=== PATIENT | male | born 1950 | race Caucasian/White ===

== ENCOUNTER 2021-11-23 11:52 | Inpatient (IN) | payer OTHER ==
[2021-11-23 13:03] LABS: Absolute Lymphocytes (CBC) 0.5 K/uL (0.7-4.9); Hematocrit 43.5 % (39.6-49.0); Lymphocytes % 5.2 % (15.3-44.8); MPV 8.2 fL (7.6-11.3); RBC Red Blood Cell Count 5.07 M/uL (4.33-5.43)
[2021-11-23 13:09] LABS: Protime INR 1.28
[2021-11-23] MEDS ORDERED: PANTOPRAZOLE 40 MG INJ ONE (13:10)
[2021-11-23] MEDS ORDERED: ONDANSETRON 4 MG/2 ML VIAL ONE (13:10)
[2021-11-23] MEDS ORDERED: NA CHLORIDE 0.9% 1,000 ML ONE (13:11)
[2021-11-23 13:24] LABS: Albumin 2.2 g/dL (3.4-5.0); Bilirubin Direct 0.9 mg/dL (0-0.2); Bilirubin Total 1.6 mg/dL (0.2-1.0); Magnesium 2.1 mg/dL (1.8-2.4); Potassium 4.1 mmol/L (3.5-5.1); Protein, Total 7.4 g/dL (6.4-8.2); Troponin High Sensitivity 4.8 pg/mL (<58.9)
[2021-11-23 13:26] LABS: Urine Blood Negative (Negative); Urine Glucose Negative (Negative); Urine Protein 2+ (Negative); Urine Specific Gravity >=1.030 (1.005-1.030)
--- NOTE | 2021-11-23 13:53 | RAD REPORT ---
EXAM DESCRIPTION: CT - Head Brain Wo Cont - 11/23/2021 1:42 pm CLINICAL HISTORY: Hand weakness COMPARISON: None TECHNIQUE: Computed axial tomography of the head was obtained. IV contrast was not requested. All CT scans are performed using dose optimization technique as appropriate and may include automated exposure control or mA/KV adjustment according to patient size. FINDINGS: An intracranial bleed is not seen . The ventricles are normal in caliber. No extra-axial fluid collection is noted. No significant hypodense areas within the brain Fluid within the sinuses/ mastoids is not seen. IMPRESSION: No acute intracranial abnormality is seen. If patient's symptoms persist MRI of the bra in would be recommended.
[2021-11-23] MEDS: PANTOPRAZOLE INJ 80 MG in NA CHLORIDE 0.9% 250 ML IV SCH (14:00)
--- NOTE | 2021-11-23 14:01 | RAD REPORT ---
EXAM DESCRIPTION: CT - Abdomen Pelvis W Contrast - 11/23/2021 1:42 pm CLINICAL HISTORY: Abdominal pain COMPARISON: none. TECHNIQUE: Computed axial tomography of the abdomen pelvis was obtained. 100 cc Isovue-300 was admin istered intravenously. Oral contrast was not requested which limits evaluation of bowel. All CT scans are performed using dose optimization technique as appropriate and may include automated exposure control or mA/KV adjustment according to patient size. FINDINGS: The liver, spleen, pancreas, adrenal and kidneys appear unremarkable. Cholecystectomy. The wall of sigmoid colon is moderately thickened. There is mild thickening of the wall of descending colon. Mild stranding adjacent to the left colon. No evidence of diverticulitis Ankylosing spondylitis is present. Scoliosis IMPRESSION: Moderate thickening of the wall of the sigmoid colon. Mild thickening of the wall of the descending colon. Patient probably has a moderate colitis.
--- NOTE | 2021-11-23 14:03 | RAD REPORT ---
EXAM DESCRIPTION: Luis Alfredo Single View11/23/2021 1:16 pm CLINICAL HISTORY: Abdominal pain COMPARISON: none FINDINGS: The lungs appear clear of acute infiltrate. The heart is normal size IMPRESSION: No acute abnormalities displayed
[2021-11-23 14:44] LABS: Urine Bacteria 20-50 /HPF (NONE SEEN); Urine Mucus 1+ /HPF (NONE SEEN); Urine RBC <5 /HPF (NONE SEEN)
--- NOTE | 2021-11-23 15:02 | ER ---
Nurse's Notes [facility] Name: Mateusz Carlson Jr Age: 71 yrs Sex: Male : 1950 Arrival Date: 11/23/2021 Time: 11:55 Bed 24 Private MD: Diagnosis: Left sided colitis with rectal bleeding Presentation: 11/23 12:02 Chief complaint: Patient states: Bloody diarrhea for 5 day. Epigastric pain also, no ll1 fever. Coronavirus screen: Vaccine status: Patient reports receiving the 2nd dose of the covid vaccine. Client denies travel out of the [place] in the last 14 days. At this time, the client does not indicate any symptoms associated with coronavirus-19. Ebola Screen: Patient denies travel to an Ebola-affected area in the 21 days before illness onset. Initial Sepsis Screen: Does the patient meet any 2 criteria? No. Patient's initial sepsis screen is negative. Does the patient have a suspected source of infection? Yes: Acute abdominal pain. Risk Assessment: Do you want to hurt yourself or someone else? Patient reports no desire to harm self or others. Onset of symptoms was November 18, 2021. 12:02 Method Of Arrival: Wheelchair ll1 12:02 Acuity: STEPHANIE 3 ll1 Triage Assessment: 12:03 General: Appears ill, Behavior is cooperative, appropriate for age. Pain: Complains of ll1 pain in epigastric Quality of pain is described as aching. GI: Reports upper abdominal pain, rectal bleeding, bloody stool, nausea. Historical: - Allergies: 12:01 No Known Allergies; ll1 - PMHx: 12:01 None; ll1 - PSHx: 12:01 Cholecystectomy; ll1 - Immunization history:: Client reports having NOT received the Covid vaccine. - Social history:: Smoking status: Patient denies any tobacco usage or history of. Screenin:19 Abuse screen: Denies threats or abuse. Denies injuries from another. Nutritional ph screening: No deficits noted. Tuberculosis screening: No symptoms or risk factors identified. Fall Risk None identified. Assessment: 13:38 General: Appears in no apparent distress. Behavior is calm, cooperative, appropriate ph for age, Denies fever. Pain: Complains of pain in epigastric area. Neuro: Level of Consciousness is awake, alert, obeys commands, Oriented to person, place, time, situation. Cardiovascular: Denies chest pain, shortness of breath, Capillary refill < 3 seconds in bilateral fingers Patient's skin is warm and dry. Respiratory: Airway is patent Respiratory effort is even, unlabored. GI: Reports upper abdominal pain, diarrhea, bloody stool, epigastric pain, nausea. : No signs and/or symptoms were reported regarding the genitourinary system. Urine is dark in color. Derm: Skin is intact. Musculoskeletal: Circulation, motion, and sensation intact. Range of motion: intact in all extremities, Reports numbness in right hand and left hand pain in right hand and left hand. 14:30 Reassessment: Patient appears in no apparent distress at this time. Patient and/or ph family updated on plan of care and expected duration. Pain level reassessed. Patient is alert, oriented x 3, equal unlabored respirations, skin warm/dry/pink. 15:36 Reassessment: Patient appears in no apparent distress at this time. Patient and/or ph family updated on plan of care and expected duration. Pain level reassessed. Patient is alert, oriented x 3, equal unlabored respirations, skin warm/dry/pink. 16:58 Reassessment: Patient appears in no apparent distress at this time. Patient and/or jb4 family updated on plan of care and expected duration. Pain level reassessed. Patient is alert, oriented x 3, equal unlabored respirations, skin warm/dry/pink. 19:04 Reassessment: Patient appears in no apparent distress at this time. Patient and/or jb4 family updated on plan of care and expected duration. Pain level reassessed. Patient is alert, oriented x 3, equal unlabored respirations, skin warm/dry/pink. 19:15 Reassessment: Patient appears in no apparent distress at this time. No changes from wh previously documented assessment. Patient is alert, oriented x 3, equal unlabored respirations, skin warm/dry/pink. Vital Signs: 12:02 BP 108 / 77; Pulse 107; Resp 18; Temp 97.7; Pulse Ox 97% ; Weight 102.97 kg; Height 5 ll1 ft. 10 in. (177.80 cm); Pain 5/10; 13:38 BP 111 / 76; Pulse 104; Resp 18; Pulse Ox 98% on R/A; ph 14:30 BP 112 / 76; Pulse 101; Resp 18; Pulse Ox 99% on R/A; ph 15:37 BP 108 / 71; Pulse 99; Resp 16; Pulse Ox 99% on R/A; ph 16:58 BP 108 / 74; Pulse 94; Resp 16; Pulse Ox 98% on R/A; jb4 18:00 BP 111 / 74; Pulse 94; Resp 20; Pulse Ox 98% on R/A; jb4 19:30 BP 111 / 75; Pulse 89; Resp 18; Pulse Ox 100% on R/A; wh 12:02 Body Mass Index 32.57 (102.97 kg, 177.80 cm) ll1 Vitals: 14:30 Cardiac Rhythm Assessment Sinus rhythm. ph ED Course: 11:55 Patient arrived in ED. ds1 11:58 Arm band placed on. ll1 12:03 Triage completed. ll1 12:13 Corazon Stevens, DARRELL is Primary Nurse. ph 12:15 Jaime Soria PA is PHCP. cp 12:15 Jaime Mejia MD is Attending Physician. cp 12:19 Patient has correct armband on for positive identification. Bed in low position. Call ph light in reach. Side rails up X 1. traffic monitor specialist on. Pulse ox on. NIBP on. Door closed. Noise minimized. 12:52 Initial lab(s) drawn, by me, sent to lab. T\T\S collected, blood band applied to patient. ph Inserted saline lock: 20 gauge in right antecubital area, using aseptic technique. Blood collected. 13:18 XRAY Chest (1 view) In Process Unspecified. EDMS 13:43 CT Head Brain wo Cont In Process Unspecified. EDMS 13:43 CT Abd/Pelvis - IV Contrast Only In Process Unspecified. EDMS 15:01 Moe Buck MD is Hospitalizing Provider. cp 16:30 Inserted saline lock: 20 gauge in left antecubital area, using aseptic technique. jb4 Missed attempt(s): 18 gauge in left forearm. 19:51 No provider procedures requiring assistance completed. Patient admitted, IV remains in place. Administered Medications: 13:15 Drug: NS 0.9% 500 ml Route: IV; Rate: bolus; Site: right antecubital; ph 19:52 Follow up: Response: No adverse reaction; IV Status: Completed infusion 13:20 Drug: Zofran (Ondansetron) 4 mg Route: IVP; Site: right antecubital; ph 19:52 Follow up: Response: No adverse reaction 13:20 Drug: ProTONIX (pantoprazole) 40 mg Route: IVP; Site: right antecubital; ph 19:53 Follow up: Response: No adverse reaction 15:35 Drug: NS 0.9% 500 ml Route: IV; Rate: 100 ml/hr; Site: right antecubital; ph 19:52 Follow up: Response: No adverse reaction; IV Status: Completed infusion 15:35 Drug: ProTONIX (pantoprazole) 8 mg/hr Route: IV; Rate: 25 ml/hr; Site: right ph antecubital; 19:53 Follow up: Response: No adverse reaction; IV Status: Infusion continued upon admission 16:38 Drug: Cipro (ciprofloxacin) 400 mg Volume: 200 ml; Route: IVPB; Infused Over: 60 mins; jb4 Site: left antecubital; 19:52 Follow up: Response: No adverse reaction; IV Status: Completed infusion 16:38 Drug: metroNIDAZOLE 500 mg Volume: 100 ml; Route: IVPB; Infused Over: 30 mins; Site: jb4 left antecubital; 19:52 Follow up: Response: No adverse reaction; IV Status: Completed infusion Outcome: 15:02 Decision to Hospitalize by Provider. cp 19:51 Admitted to Med/surg accompanied by nurse, family with patient, via wheelchair, room wh 222, with chart, Report called to Brooke Baumann RN 19:51 Condition: stable 19:51 Instructed on the need for admit. 20:14 Patient left the ED. Signatures: Dispatcher [employer] EDOR Fiorella Beckett ds1 Corazon Stevens RN RN Jaime Quintero PA PA cp Tom Andrade RN RN jb4 Дмитрий Huertas RN RN Gaye Charlton RN RN ll1
--- NOTE | 2021-11-23 15:02 | EDPHYS ---
Physician Documentation [facility] Name: Mateusz Carlson Jr Age: 71 yrs Sex: Male : 1950 Arrival Date: 11/23/2021 Time: 11:55 Bed 24 Private MD: ED Physician Jaime Mejia HPI: 11/23 12:30 This 71 yrs old Male presents to ER via Wheelchair with complaints of Bloody Stools - cp Diarrhea, Numbness Of Hand - Swelling. 12:30 The patient presents to the emergency department with rectal bleeding, dark red blood cp with bowel movement with multiple such episodes. Onset: The symptoms/episode began/occurred 4 day(s) ago. 12:30 Abdominal pain: located in the epigastric area. Associated signs and symptoms: cp Pertinent positives: anorexia, diarrhea, Pertinent negatives: chest pain, constipation, fever, shortness of breath, syncope, vomiting. Severity of symptoms: in the emergency department the symptoms are unchanged despite home interventions. Historical: - Allergies: 12:01 No Known Allergies; ll1 - PMHx: 12:01 None; ll1 - PSHx: 12:01 Cholecystectomy; ll1 - Immunization history:: Client reports having NOT received the Covid vaccine. - Social history:: Smoking status: Patient denies any tobacco usage or history of. ROS: 12:35 Constitutional: Positive for poor PO intake, Negative for body aches, chills, fever. cp 12:35 Eyes: Negative for injury, pain, redness, and discharge. cp 12:35 ENT: Negative for drainage from ear(s), ear pain, sore throat, difficulty swallowing, difficulty handling secretions. 12:35 Cardiovascular: Negative for chest pain, edema, palpitations. 12:35 Respiratory: Negative for cough, shortness of breath, wheezing. 12:35 Abdomen/GI: Positive for abdominal pain, nausea, diarrhea, anorexia, rectal bleeding, Negative for vomiting. 12:35 Back: Negative for pain at rest, pain with movement. 12:35 MS/extremity: Positive for pain, swelling, of the right hand and left hand, Negative for injury or acute deformity, decreased range of motion. 12:35 Neuro: Positive for numbness, general weakness, Negative for altered mental status, headache. 12:35 All other systems are negative. Exam: 12:40 Constitutional: The patient appears in no acute distress, alert, awake, cp non-diaphoretic, non-toxic, well developed, well nourished. 12:40 Head/Face: Normocephalic, atraumatic. cp 12:40 Eyes: Periorbital structures: appear normal, Conjunctiva: normal, no exudate, no injection, Sclera: no appreciated abnormality, Lids and lashes: appear normal, bilaterally. 12:40 ENT: External ear(s): are unremarkable, Nose: is normal, Mouth: Lips: moist, Oral mucosa: pink and intact, moist, Posterior pharynx: Airway: no evidence of obstruction, patent. 12:40 Neck: ROM/movement: is normal, is supple, without pain, no range of motions limitations. 12:40 Chest/axilla: Inspection: normal, Palpation: is normal, no crepitus, no tenderness. 12:40 Cardiovascular: Rate: tachycardic, Rhythm: regular, Edema: is not appreciated, JVD: is not appreciated. 12:40 Respiratory: the patient does not display signs of respiratory distress, Respirations: normal, no use of accessory muscles, no retractions, labored breathing, is not present, Breath sounds: are clear throughout, no decreased breath sounds, no stridor, no wheezing. 12:40 Abdomen/GI: Inspection: abdomen appears normal, Bowel sounds: active, all quadrants, Palpation: soft, in all quadrants, mild abdominal tenderness, in all quadrants, rebound tenderness, is not appreciated, involuntary guarding, is not appreciated. 12:40 Back: pain, is absent, ROM is normal. 12:40 Skin: cellulitis, is not appreciated, no rash present. 12:40 Neuro: Orientation: to person, place \\T\\ time. Mentation: is normal, Motor: moves all fours, weakend workday director strength bilaterally, Sensation: no obvious gross deficits. 13:05 : Rectal exam: Rectal tone: normal, Stool: dark brown, Guaiac testing: results were cp positive for occult blood. 14:55 ECG was reviewed by the Attending Physician. cp Vital Signs: 12:02 BP 108 / 77; Pulse 107; Resp 18; Temp 97.7; Pulse Ox 97% ; Weight 102.97 kg; Height 5 ll1 ft. 10 in. (177.80 cm); Pain 5/10; 13:38 BP 111 / 76; Pulse 104; Resp 18; Pulse Ox 98% on R/A; ph 14:30 BP 112 / 76; Pulse 101; Resp 18; Pulse Ox 99% on R/A; ph 15:37 BP 108 / 71; Pulse 99; Resp 16; Pulse Ox 99% on R/A; ph 16:58 BP 108 / 74; Pulse 94; Resp 16; Pulse Ox 98% on R/A; jb4 18:00 BP 111 / 74; Pulse 94; Resp 20; Pulse Ox 98% on R/A; jb4 19:30 BP 111 / 75; Pulse 89; Resp 18; Pulse Ox 100% on R/A; wh 12:02 Body Mass Index 32.57 (102.97 kg, 177.80 cm) ll1 MDM: 12:[address] [facility] 14:30 Data reviewed: vital signs, nurses notes, lab test result(s), EKG, radiologic studies, cp CT scan, plain films. 14:30 Differential diagnosis: gastritis, diverticulitis, hemorrhoids, hemorrhagic shock. Test cp interpretation: by ED physician or midlevel provider: ECG, plain radiologic studies. Physician consultation: Moe Buck MD was called at 14:30, was contacted at 14:30, regarding admission, to the telemetry unit. patient's condition. 11/23 12:24 Order name: Basic Metabolic Panel; Complete Time: 13:50 cp 11/23 13:50 Interpretation: Normal except: NA 131; GLUC 109; GFR 69. cp 11/23 12:24 Order name: CBC with Diff; Complete Time: 13:20 cp 11/23 13:20 Interpretation: Normal except: VANE% 85.0; LYM% 5.2; NEUT A 8.4; LYMA 0.5. cp 11/23 12:24 Order name: LFT's; Complete Time: 13:50 cp 11/23 13:51 Interpretation: Normal except: BILIT 1.6; BILID 0.9; ALB 2.2; GLOB 5.2; A/G 0.4. cp 11/23 12:24 Order name: Magnesium; Complete Time: 13:50 cp 11/23 12:24 Order name: PT-INR; Complete Time: 13:20 cp 11/23 13:51 Interpretation: PT 14.1; Reviewed. cp 11/23 12:24 Order name: Troponin HS; Complete Time: 13:50 cp 11/23 12:24 Order name: Type And Screen; Complete Time: 13:50 cp 11/23 12:24 Order name: Ptt, Activated; Complete Time: 13:20 cp 11/23 12:59 Order name: Stool Culture cp 11/23 12:59 Order name: Occult Blood; Complete Time: 16:18 cp 11/23 12:59 Order name: Ova And Parasites cp 11/23 12:59 Order name: Rotavirus Antigen; Complete Time: 16:18 cp 11/23 13:22 Order name: Urine Microscopic Only; Complete Time: 16:18 cp 11/23 13:26 Order name: Urine Dipstick-Ancillary; Complete Time: 13:50 EDAL 11/23 13:51 Interpretation: Normal except: UPROT 2+; U NIT Positive. cp 11/23 12:24 Order name: XRAY Chest (1 view); Complete Time: 14:09 cp 11/23 14:09 Interpretation: Report review. 11/23 13:20 Order name: CT Head Brain wo Cont; Complete Time: 14:09 cp 11/23 14:09 Interpretation: Report reviewed. cp 11/23 13:20 Order name: CT Abd/Pelvis - IV Contrast Only; Complete Time: 14:09 cp 11/23 14:47 Order name: Urine Culture EDAL 11/23 15:36 Order name: COVID-19 SARS RT PCR (Document "Date of Onset" if Symptomatic); Complete ph Time: 16:18 11/23 16:47 Order name: CBC with Automated Diff EDMS 11/23 16:47 Order name: CBC with Automated Diff; Complete Time: 16:18 EDMS 11/23 16:47 Order name: Comprehensive Metabolic Panel EDMS 11/23 16:47 Order name: Comprehensive Metabolic Panel; Complete Time: 16:18 EDMS 11/23 16:47 Order name: Magnesium EDMS 11/23 16:47 Order name: Magnesium; Complete Time: 16:18 EDMS 11/23 12:24 Order name: Orthostatics; Complete Time: 15:18 cp 11/23 12:24 Order name: EKG; Complete Time: 12:26 cp 11/23 12:24 Order name: Cardiac monitoring; Complete Time: 14:38 cp 11/23 12:24 Order name: EKG - Nurse/Tech; Complete Time: 14:38 cp 11/23 12:24 Order name: IV Saline Lock; Complete Time: 13:37 cp 11/23 12:24 Order name: Labs collected and sent; Complete Time: 13:37 cp 11/23 12:24 Order name: O2 Per Protocol; Complete Time: 13:36 cp 11/23 12:24 Order name: O2 Sat Monitoring; Complete Time: 13:36 cp 11/23 13:22 Order name: Urine Dipstick-Ancillary (obtain specimen); Complete Time: 13:38 cp 11/23 16:45 Order name: CONS Physician Consult EDMS 11/23 16:47 Order name: NPO EDMS EC:55 Rate is 93 beats/min. Rhythm is regular. GA interval is normal. QRS interval is normal. cp QT interval is normal. T waves are Inverted in lead aVR. Interpreted by me. Reviewed by me. Administered Medications: 13:15 Drug: NS 0.9% 500 ml Route: IV; Rate: bolus; Site: right antecubital; ph 19:52 Follow up: Response: No adverse reaction; IV Status: Completed infusion 13:20 Drug: Zofran (Ondansetron) 4 mg Route: IVP; Site: right antecubital; ph 19:52 Follow up: Response: No adverse reaction 13:20 Drug: ProTONIX (pantoprazole) 40 mg Route: IVP; Site: right antecubital; ph 19:53 Follow up: Response: No adverse reaction 15:35 Drug: NS 0.9% 500 ml Route: IV; Rate: 100 ml/hr; Site: right antecubital; ph 19:52 Follow up: Response: No adverse reaction; IV Status: Completed infusion 15:35 Drug: ProTONIX (pantoprazole) 8 mg/hr Route: IV; Rate: 25 ml/hr; Site: right ph antecubital; 19:53 Follow up: Response: No adverse reaction; IV Status: Infusion continued upon admission 16:38 Drug: Cipro (ciprofloxacin) 400 mg Volume: 200 ml; Route: IVPB; Infused Over: 60 mins; jb4 Site: left antecubital; 19:52 Follow up: Response: No adverse reaction; IV Status: Completed infusion 16:38 Drug: metroNIDAZOLE 500 mg Volume: 100 ml; Route: IVPB; Infused Over: 30 mins; Site: jb4 left antecubital; 19:52 Follow up: Response: No adverse reaction; IV Status: Completed infusion Disposition Summary: 11/23/21 15:02 Hospitalization Ordered Hospitalization Status: Observation cp Provider: Moe Buck cp Location: Telemetry/MedSurg (observation) cp Condition: Stable cp Problem: new cp Symptoms: have improved cp Bed/Room Type: Standard cp Room Assignment: 222(11/23/21 19:34) cg Diagnosis - Left sided colitis with rectal bleeding cp Forms: - Medication Reconciliation Form cp - SBAR form cp Addendum: 12/01/2021 07:41 Co-signature as Attending Physician, Jaime Mejia MD I agree with the assessment and c pina plan of care. Signatures: Dispatcher [employer] EDJaime Rhodes MD MD cha Hall, Patricia, RN RN Jaime Soria PA PA cp Pilar Santiago RN RN Tom Andrade RN RN jb4 Gaye Charlton RN RN ll1 Дмитрий Huertas RN Corrections: (The following items were deleted from the chart) 11/23 19:12 15:02 cp cg 19:34 19:12 231 cg cg
[2021-11-23] MEDS ORDERED: CIPROFLOXACIN 400mg IV 400 MG/200 ML BAG IV ONE (15:03)
[2021-11-23] MEDS ORDERED: METRONIDAZOLE 500mg IVPB 500 MG/100 ML BAG IV ONE (15:03)
[2021-11-23] MEDS ORDERED: ONDANSETRON 4 MG/2 ML VIAL IV PRN (16:43)
--- NOTE | 2021-11-23 16:47 | P.HP ---
Patient History Date of Service: 11/23/21 Reason for admission: GI bleed, inability to maintain adequate hydration History of Present Illness: 71-year-old male, PMH: Shoulder/neck pain. 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 Patient was treated with meloxicam and prednisone for 1 week due to bilateral hand pain, weakness, numbness after manipulations by a chiropractor. Patient was previously taking ibuprofen 600 mg twice a day for approximately 4-5 days. Patient states upon completing the above regimen, he began to have diarrhea and noted maroonish discoloration. Reports initially having diarrhea episodes every 2 hours, associated with abdominal discomfort while/after having a bowel movement. Patient took Imodium with some slight improvement of frequency of diarrhea. Denies any prior history of GI bleed. Last colonoscopy 3-4 years ago unremarkable, only had a polypectomy. Also reports significant heartburn over the last several days, points to epigastric region has been having pain, taking Tums with not much relief. He has been unable to stay hydrated and keep up with the diarrhea, decreased appetite. In the ED, he was noted to be slightly tachycardic to 110, low blood pressure [id number] systolic, afebrile. CT abdomen/pelvis concerning for moderate colitis. ED provider requests admission for further management/evaluation. Started on antibiotics and Protonix drip. Review of Systems 10-point ROS is otherwise unremarkable Physical Examination - Physical Exam General: Alert, In no apparent distress, Oriented x3 HEENT: EOMI, Sclerae nonicteric Neck: Supple, No LAD Respiratory: Clear to auscultation bilaterally, Normal air movement Cardiovascular: No edema, Regular rate/rhythm, No murmurs Gastrointestinal: Soft and benign, Non-distended, No rebound, No guarding, Tenderness (Mild epigastric tenderness. Mild lower abdominal tenderness) Musculoskeletal: No erythema, No tenderness Integumentary: No rashes, No significant lesion Neurological: Normal speech, Normal strength at 5/5 x4 extr, Normal affect - Studies Laboratory Data (last 24 hrs) 11/23/21 12:45: PT 14.1 H, INR 1.28, APTT 35.1 11/23/21 12:45: WBC 9.9, Hgb 14.6, Hct 43.5, Plt Count 372 11/23/21 12:45: Sodium 131 L, Potassium 4.1, BUN 15, Creatinine 1.06, Glucose 109 H, Magnesium 2.1, Total Bilirubin 1.6 H, AST 35, ALT 25, Alkaline Phosphatase 80 Microbiology Data (last 24 hrs): 11/23/21 13:20 Stool Occult Blood - Final Assessment and Plan - Advance Directives Does patient have a Living Will: No Does patient have a Durable POA for Healthcare: No Physician Review Additional Text: Problem list Sigmoid colitis with GI bleed Epigastric tenderness Persistent dark maroonish diarrhea, inability to maintain adequate hydration at home Low blood pressure and tachycardia secondary to dehydration CT: moderate colitis Maroonish stool noted, guaiac positive Hemoglobin 14, suspect this is hemoconcentrated, expect slight drop by tomorrow. Repeat CBC tomorrow IV fluids, n.p.o., Protonix drip Epigastric pain significantly improved after initiation of Protonix drip Mild lower abdominal tenderness, improved with pain medication Will discuss with GI, if requires inpatient scope Tachycardia and low blood pressure secondary to dehydration, afebrile, without leukocytosis Patient does not appear septic at this time. VTE: SCDs Code: DNR Dispo: Home, 1-2 days, possible scope Time Spent Managing Pts Care (In Minutes): 75
[2021-11-23] MEDS: NA CHLORIDE 0.9% 1,000 ML IV SCH ×3 (17:00→22:13)
[2021-11-23] MEDS: METRONIDAZOLE 500mg IVPB 500 MG/100 ML BAG IV SCH (17:00)
[2021-11-23] MEDS: CIPROFLOXACIN 400mg IV 400 MG/200 ML BAG IV SCH (21:00)
[2021-11-23 21:08] VITALS: BMI 32.5
[2021-11-24] MEDS ORDERED: PANTOPRAZOLE 40 MG INJ ONE ×2 (00:13→22:51)
[2021-11-24] MEDS: PANTOPRAZOLE INJ 80 MG in NA CHLORIDE 0.9% 250 ML IV SCH ×2 (01:20→09:17)
[2021-11-24] MEDS: METRONIDAZOLE 500mg IVPB 500 MG/100 ML BAG IV SCH ×3 (01:22→16:59)
[2021-11-24 04:08] LABS: Absolute Lymphocytes (CBC) 0.6 K/uL (0.7-4.9); Hematocrit 37.5 % (39.6-49.0); Lymphocytes % 8.9 % (15.3-44.8); RBC Red Blood Cell Count 4.35 M/uL (4.33-5.43)
[2021-11-24 04:35] LABS: ALT/SGPT 18 U/L (12-78); AST/SGOT 23 U/L (15-37); Albumin 1.8 g/dL (3.4-5.0); Alkaline Phosphatase 62 U/L (45-117); BUN Blood Urea Nitrogen 14 mg/dL (7-18); Bicarbonate 24 mmol/L (21-32); Bilirubin Total 0.9 mg/dL (0.2-1.0); Glucose Level 95 mg/dL (74-106); Magnesium 2.1 mg/dL (1.8-2.4); Potassium 3.8 mmol/L (3.5-5.1); Protein, Total 6.1 g/dL (6.4-8.2); Sodium Level 133 mmol/L (136-145)
[2021-11-24] MEDS: NA CHLORIDE 0.9% 1,000 ML IV SCH ×2 (06:45→18:30)
--- NOTE | 2021-11-24 06:55 | P.PN ---
Date of Service: 11/24/21 Subjective: one small BM, brownish no nausea/vomiting no abdominal pain no SOB, no chest pain feeling better ROS: 10 point ROS as noted above, otherwise negative Physical exam GEN: Alert, oriented, NAD HEENT: Normal conjunctiva, sclera anicteric CV: Regular rate and rhythm, no edema Pulm: Nonlabored respirations on room air ABD: Soft, nontender, nondistended Neuro: Normal speech, normal affect Problem list Sigmoid colitis with GI bleed Epigastric tenderness Persistent dark maroonish diarrhea, inability to maintain adequate hydration at home intermittent difficulty swallowing Low blood pressure and tachycardia secondary to dehydration CT: moderate colitis Maroonish stool noted, guaiac positive Hemoglobin 14 -> 12, 2/2 blood loss, dilution IV fluids, n.p.o., Protonix drip Epigastric pain significantly improved after initiation of Protonix drip Mild lower abdominal tenderness improved as well patient may also have esoph stenosis /Schatzki's ring given history of intermittent food getting stuck GI consulted - plan for EGD today Tachycardia and low blood pressure secondary to dehydration, afebrile, without leukocytosis Patient does not appear septic at this time. VTE: SCDs Code: DNR Dispo: Home, 1-2 days Time Spent Managing Pts Care (In Minutes): 35
[2021-11-24] MEDS ORDERED: KCL 20 MEQ/100 mL IVPB 20 MEQ/100 ML BAG IV ONE (08:00)
[2021-11-24] MEDS: CIPROFLOXACIN 400mg IV 400 MG/200 ML BAG IV SCH ×2 (08:55→23:56)
[2021-11-24] MEDS ORDERED: Ringers Lactate 1,000 ML IV ONE (12:56)
[2021-11-24] MEDS ORDERED: EPINEPHRINE/PF 1 MG/ML AMP ONE (13:35)
[2021-11-24] MEDS ORDERED: propofoL 200 MG/20 ML VIAL IV ONE (13:55)
[2021-11-24] MEDS ORDERED: LIDOCAINE 1% MPF 30 ML VIAL ONE (13:55)
--- NOTE | 2021-11-24 14:37 | ENDO RPT ---
[address], [address] EGD WITH DILATION PROCEDURE REPORT EXAM DATE: 11/24/2021 PATIENT NAME: Mateusz Carlson MR#: [id number] BIRTHDATE: 1950 ATTENDING: Mateusz Suggs Dr STATUS: inpatient - [facility] [employer] FEEDER: Corazon Sue and Cecille Chaney RN INDICATIONS: The patient is a 71 yr old Male here for an EGD with dilation due to mid epigastric abdominal pain, melenic bleeding, and anemia PROCEDURE PERFORMED: EGD with biopsy and EGD with dilatation over guidewire MEDICATIONS: Per Anesthesia. TOPICAL ANESTHETIC: none CONSENT: The patient understands the risks and benefits of the procedure and understands that these risks include, but are not limited to: sedation, allergic reaction, infection, perforation and/or bleeding. Alternative means of evaluation and treatment include, among others: physical exam, x-rays, and/or surgical intervention. The patient elects to proceed with this endoscopic procedure. DESCRIPTION OF PROCEDURE: During intra-op preparation period all mechanical medical equipment was checked for proper function. Hand hygiene and appropriate measures for infection prevention was taken. After the risks, benefits and alternatives of the procedure were thoroughly explained, Informed consent was verified, confirmed and timeout was successfully executed by the treatment team. The patient was anesthetized with topical anesthesia and the EG-[id number] ([id number]) endoscope was introduced through the mouth and advanced to the third portion of the duodenum. The instrument was slowly withdrawn as the mucosa was fully examined. A Schatzki's ring was found in the lower esophagus. Savary dilation over a guidewire was performed. A small hiatal hernia was found Moderate Atrophic gastritis was found in the body and the antrum of the stomach. Multiple biopsies were obtained and sent to pathology. Duodenitis was found in the bulb of the duodenum. Dilation was performed at lower esophagus. DILATOR: SIZE(S): RESISTANCE: HEME: APPEARANCE: Dilator: Savary over guidewire Size(s): 12.8/14 mm Heme: none Appearance: adequate COMMENT: Retroflexed views revealed a small hiatal hernia. ADVERSE EVENTS: There were no complications. IMPRESSIONS: 1. Schatzki's ring in the lower esophagus, s/p 12.8 / 14 mm Savary dilatations 2. Small hiatal hernia 3. Moderate atrophic gastritis in the body and the antrum of the stomach, s/p biopsies 4. Duodenitis in the bulb of the duodenum RECOMMENDATIONS: 1. await biopsy results 2. acid suppression therapy REPEAT EXAM: Mateusz Suggs Dr eSigned: Mateusz Suggs Dr 11/24/2021 2:36 PM cc: CPT CODES: ICD9 CODES: PATIENT NAME: Mateusz Carlson MR#: [id number]
--- NOTE | 2021-11-24 14:46 | ENDO RPT ---
[address], [address] EGD WITH DILATION PROCEDURE REPORT EXAM DATE: 11/24/2021 PATIENT NAME: Mateusz Carlson MR#: [id number] BIRTHDATE: 1950 ATTENDING: Mateusz Suggs Dr STATUS: inpatient - [facility] CLAIM[facility] VICE PRESIDENT: Corazon Sue and Cecille Chaney RN INDICATIONS: The patient is a 71 yr old Male here for an EGD with dilation due to mid epigastric abdominal pain, melenic bleeding, dysphagia, and anemia PROCEDURE PERFORMED: EGD with biopsy and EGD with dilatation over guidewire MEDICATIONS: Per Anesthesia. TOPICAL ANESTHETIC: none CONSENT: The patient understands the risks and benefits of the procedure and understands that these risks include, but are not limited to: sedation, allergic reaction, infection, perforation and/or bleeding. Alternative means of evaluation and treatment include, among others: physical exam, x-rays, and/or surgical intervention. The patient elects to proceed with this endoscopic procedure. DESCRIPTION OF PROCEDURE: During intra-op preparation period all mechanical medical equipment was checked for proper function. Hand hygiene and appropriate measures for infection prevention was taken. After the risks, benefits and alternatives of the procedure were thoroughly explained, Informed consent was verified, confirmed and timeout was successfully executed by the treatment team. The patient was anesthetized with topical anesthesia and the EG-[id number] ([id number]) endoscope was introduced through the mouth and advanced to the third portion of the duodenum. The instrument was slowly withdrawn as the mucosa was fully examined. A Schatzki's ring was found in the lower esophagus. Savary dilation over a guidewire was performed. A small hiatal hernia was found Moderate Atrophic gastritis was found in the body and the antrum of the stomach. Multiple biopsies were obtained and sent to pathology. Duodenitis was found in the bulb of the duodenum. Dilation was performed at lower esophagus. DILATOR: SIZE(S): RESISTANCE: HEME: APPEARANCE: Dilator: Savary over guidewire Size(s): 12.8/14 mm Heme: none Appearance: adequate Retroflexed views revealed a small hiatal hernia. ADVERSE EVENTS: There were no complications. IMPRESSIONS: 1. Schatzki's ring in the lower esophagus, s/p 12.8 / 14 mm esophagitis 2. Small hiatal hernia 3. Moderate atrophic gastritis in the body and the antrum of the stomach, s/p biopsies 4. Duodenitis in the bulb of the duodenum RECOMMENDATIONS: 1. await biopsy results 2. acid suppression therapy REPEAT EXAM: Mateusz Suggs Dr eSigned: Mateusz Suggs Dr 11/24/2021 2:45 PM Revised: 11/24/2021 2:45 PM cc: CPT CODES: ICD9 CODES: PATIENT NAME: Mateusz Carlson MR#: [id number]
[2021-11-25] MEDS: PANTOPRAZOLE INJ 80 MG in NA CHLORIDE 0.9% 250 ML IV SCH ×3 (00:03→13:21)
[2021-11-25] MEDS: NA CHLORIDE 0.9% 1,000 ML IV SCH ×3 (01:00→13:54)
[2021-11-25 05:20] LABS: Absolute Lymphocytes (CBC) 0.5 K/uL (0.7-4.9); Lymphocytes % 7.4 % (15.3-44.8)
[2021-11-25 05:49] LABS: ALT/SGPT 14 U/L (12-78); AST/SGOT 21 U/L (15-37); Albumin 1.7 g/dL (3.4-5.0); Alkaline Phosphatase 56 U/L (45-117); BUN Blood Urea Nitrogen 12 mg/dL (7-18); Bicarbonate 23 mmol/L (21-32); Bilirubin Total 0.7 mg/dL (0.2-1.0); Glucose Level 106 mg/dL (74-106); Magnesium 2.1 mg/dL (1.8-2.4); Potassium 3.6 mmol/L (3.5-5.1); Protein, Total 5.7 g/dL (6.4-8.2); Sodium Level 135 mmol/L (136-145)
[2021-11-25] MEDS: METRONIDAZOLE 500mg IVPB 500 MG/100 ML BAG IV SCH ×3 (06:11→16:31)
--- NOTE | 2021-11-25 06:40 | P.PN ---
Date of Service: 11/25/21 Subjective: having multiple small bloody bowel movements, more red, less maroon tolerating clears, no pain ROS: 10 point ROS as noted above, otherwise negative Physical exam GEN: Alert, oriented, NAD HEENT: Normal conjunctiva, sclera anicteric CV: Regular rate and rhythm, no edema Pulm: Nonlabored respirations on room air ABD: Soft, nontender, nondistended Neuro: Normal speech, normal affect Problem list Sigmoid colitis with GI bleed Epigastric tenderness Schatzki's ring Low blood pressure and tachycardia secondary to dehydration Hemoglobin 14 -> 12, 2/2 blood loss, dilution, repeat h/h later today IV fluids, liquid diet, protonix drip, transition to protonix BID later denies abdominal pain, very mild tenderness in LLQ Schatzki's ring status post dilatation. Patient swallowing without issue Vitals normal, stable Continues with bloody bowel movements, no more red Continue to monitor through today/tonight VTE: SCDs Code: DNR Dispo: Home, likely tomorrow Time Spent Managing Pts Care (In Minutes): 35
[2021-11-25 07:58] LABS: Blood Morphology Comment NOT SEEN (NOT SEEN); Platelet Estimate ADEQ
[2021-11-25] MEDS: CIPROFLOXACIN 400mg IV 400 MG/200 ML BAG IV SCH ×2 (09:19→21:22)
[2021-11-25] MEDS: POTASSIUM 25 MEQ EFFERV TAB PO SCH (09:19)
[2021-11-25 12:08] LABS: C.diff Antigen/Toxin Ag neg : Tox neg (NEG : NEG)
[2021-11-25 15:26] LABS: Hematocrit 38.2 % (39.6-49.0); MPV 7.9 fL (7.6-11.3); RBC Red Blood Cell Count 4.45 M/uL (4.33-5.43)
[2021-11-25] MEDS: PANTOPRAZOLE 40MG TABLET PO SCH (16:31)
--- NOTE | 2021-11-25 17:01 | P.PN ---
Subjective Date of Service: 11/25/21 Chief Complaint: GI bleed, melena, hematochezia, COLETTE pain, dysphagia, RLQ/LLQ pain, abn CT Subjective: Improving (Feels better but small amount of bright red blood in stool noted today. Colonoscopy 4 years ago at [facility] in [place] -> negative. EGD with gastritis, duodenitis yesterday.) Review of Systems 10-point ROS is otherwise unremarkable Gastrointestinal: Hematochezia Physical Examination - Vital Signs Temperature: 97.6 F Blood Pressure: 145/75 Pulse: 89 Respirations: 18 Pulse Ox (%): 98 - Physical Exam General: Alert, In no apparent distress, Oriented x3, Cooperative HEENT: Atraumatic, Normocephalic, PERRLA, EOMI Neck: Supple Respiratory: Normal air movement Cardiovascular: Normal pulses Gastrointestinal: Soft and benign, No masses, No rebound, No guarding Neurological: Normal speech, Normal strength at 5/5 x4 extr - Studies Microbiology Data (last 24 hrs): 11/23/21 13:20 Stool Culture & Sensitivity - Final 11/23/21 13:20 Clean Catch Urine [place] Count - Final BETWEEN 10,000 & 100,000 CFU/ML 11/23/21 13:20 Clean Catch Urine - Final MIXED CAROLYN. Assessment And Plan - Current Problems (Diagnosis) (1) Epigastric abdominal pain Current Visit: Yes Status: Acute (2) Anemia Current Visit: Yes Status: Acute (3) Dysphagia Current Visit: Yes Status: Acute (4) Change in bowel habits Current Visit: Yes Status: Acute (5) Diarrhea Current Visit: Yes Status: Acute (6) RLQ abdominal pain Current Visit: Yes Status: Acute (7) LLQ abdominal pain Current Visit: Yes Status: Acute (8) Abnormal CT of the abdomen Current Visit: Yes Status: Acute (9) Colitis Current Visit: Yes Status: Acute - Plan REC: 1) await remaining stool studies 2) contnue IVFs for now & IV antibiotics 3) after current bag completed, discontinue Protonix IV drip & switch to qd IV dosing 4) continue serial H&Hs and transfuse prn 5) discharge on 10 days of Cipro / Flagyl 6) GI clinic f/u in 1-2 weeks
[2021-11-26] MEDS: METRONIDAZOLE 500mg IVPB 500 MG/100 ML BAG IV SCH ×3 (00:24→16:09)
[2021-11-26] MEDS: NA CHLORIDE 0.9% 1,000 ML IV SCH (00:25)
[2021-11-26 06:43] LABS: BUN Blood Urea Nitrogen 9 mg/dL (7-18); Bicarbonate 25 mmol/L (21-32); Glucose Level 118 mg/dL (74-106); Potassium 3.4 mmol/L (3.5-5.1); Sodium Level 135 mmol/L (136-145)
[2021-11-26] MEDS: PANTOPRAZOLE 40MG TABLET PO SCH ×2 (07:37→16:08)
[2021-11-26 07:38] LABS: MPV 7.8 fL (7.6-11.3); RBC Red Blood Cell Count 4.36 M/uL (4.33-5.43)
[2021-11-26] MEDS: POTASSIUM 25 MEQ EFFERV TAB PO SCH (07:38)
[2021-11-26] MEDS: CIPROFLOXACIN 400mg IV 400 MG/200 ML BAG IV SCH ×2 (07:39→20:35)
--- NOTE | 2021-11-26 15:55 | CON ---
Date of Consultation: 11/24/2021 Reason For Consultation: Midepigastric pain with maroon stools and right and left lower quadrant sameer n with transient diarrhea. History Of Present Illness: The patient is a 71-year-old white male, see chart from yesterday ____ right now. The patient presented to the hospital with acute right and left lower quadrant pain and diarrhea for 4 days, stopped 2 days ago he reports. CT scan here in the hospital reveals colitis of the sigmoid and descending colon. Also, he has midepigastric pain, maroon stools, and he notes d ysphagia to solids recently as well. He is status post laparoscopic cholecystectomy in the past, lef t arm fracture at 9 years, tonsillectomy. Past Medical History: Cholecystectomy, left arm fracture and tonsillectomy. Medications: The patient denies home medications, except p.r.n. medications. Allergies: NKDA. Social History: He is , 2 daughters. No tobacco. Positive for alcohol, 2 beers every other week he reports. 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 Mother of congestive heart fail ure. Review of Systems: The patient has midepigastric pain, maroon stools, right and left lower quadrant pain, transient diar reece last week 2 days ago, and dysphagia to solids recently. He denies any hematemesis, c offee-ground emesis, hematuria, dysuria, polyuria, polydipsia, hemoptysis, epistaxis, chest pain, williams rtness of breath, seizure, syncope, lower extremity edema, muscle aches, joint aches, backaches. No depression or anxiety. Physical Examination: Vital Signs: The patient is 5 feet 10 inches, 227 pounds, BMI of 32 kg/m2. Temperature of 96.5 degr ees Fahrenheit, pulse 81, respirations 18, blood pressure 131/73, O2 saturation 100%. General: He is a well-nourished, well-developed obese male, lying in bed, in no acute distress. HEENT: Normocephalic, atraumatic. Anicteric. Pupils equal, round, and reactive to light. Extraocu lar movements intact. Oropharynx clear. Neck: Supple. No masses. Respirations: Clear to auscultation. Cardiac: Regular rate and rhythm. No gallops or rubs. Abdomen: Positive bowel sounds. Soft. Midepigastric right and left lower quadrant tenderness. No peritoneal sign. No rebound. No Lewis sign. Extremities: No clubbing, cyanosis, or edema. 2+ pulses. Neuro: Alert and oriented X3. Grossly nonfocal. 5/5 motor. Sensation intact to light touch. Laboratory Data: The patient has a white count of 6.3, hemoglobin of 12.6, hematocrit 37, MCV of 86, platelet count 311, polys of 86%, lymphocytes 7%, monocytes 7%. PT of 14.1, INR of 1.3, PTT 35.1. Sodium 133, potassium 3.8, chloride 102, bicarb 24, BUN of 14, creatinine of 0.8, glucose 95, calcium 9.4, magnesium 2.1, total bilirubin 0.9, AST 23, ALT 18, alkaline phosphatase 62, total protein 6.1, albumin 1.8. Nitrates positive, 20-50 bacteria, 2+ protein. COVID testing was negative. C diff te sting was negative. CT abdomen and pelvis revealed colitis in sigmoid colon greater than the descend ing colon. Impression: 1.Midepigastric pain with maroon stools, gastrointestinal bleed. We will proceed with EGD. 2.Right and left lower quadrant pain with diarrhea for 4 days, stopped 2 days ago. His last colonos copy was 4 years ago at the [place], which was negative as per his report. He has history of polyps, 4 po lyps prior to that on a colonoscopy somewhat 6 to 10 years prior to that. 3.Colitis noted on CT of the abdomen and pelvis in the sigmoid grade and descending colon, probably infectious versus ischemic or other. 4.Dysphagia to solids. Once again, we will proceed with EGD. 5.History of laparoscopic cholecystectomy, left arm fracture at 9 years of age, and tonsillectomy. Recommendations: 1.EGD. 2.Continue IV fluids, IV antibiotics. 3.If diarrhea recurs, check further stool studies. 4.Serial H and H and transfuse p.r.n. 5.Consider colonoscopy, but the patient refuses at this time. LISA/LIZETH Voice ID: [id number] Report ID: [id number]
--- NOTE | 2021-11-26 17:42 | P.PN ---
Date of Service: 11/26/21 Subjective: continues with several stools throughout day more red / bloody episode of LLQ pain again ROS: 10 point ROS as noted above, otherwise negative Physical exam GEN: Alert, oriented, NAD HEENT: Normal conjunctiva, sclera anicteric CV: Regular rate and rhythm, no edema Pulm: Nonlabored respirations on room air ABD: Soft, mild TTP in LLQ Neuro: Normal speech, normal affect Problem list Sigmoid colitis with GI bleed Epigastric tenderness Schatzki's ring Low blood pressure and tachycardia secondary to dehydration Hemoglobin 14 -> 12, 2/2 blood loss, dilutional; stable advance diet, decrease IVF, protonix BID Schatzki's ring status post dilatation. Patient swallowing without issue Continues with bloody bowel movements continue iV antibiotics monitor further await less frequent stools VTE: SCDs Code: DNR Dispo: Home, likely tomorrow Time Spent Managing Pts Care (In Minutes): 35
[2021-11-27] MEDS: METRONIDAZOLE 500mg IVPB 500 MG/100 ML BAG IV SCH ×3 (01:15→17:34)
[2021-11-27 06:03] LABS: Hematocrit 38.1 % (39.6-49.0); RBC Red Blood Cell Count 4.43 M/uL (4.33-5.43)
[2021-11-27 06:17] LABS: BUN Blood Urea Nitrogen 9 mg/dL (7-18); Bicarbonate 25 mmol/L (21-32); Glucose Level 113 mg/dL (74-106); Potassium 3.3 mmol/L (3.5-5.1); Sodium Level 135 mmol/L (136-145)
--- NOTE | 2021-11-27 07:49 | CON ---
Date of Consultation: 11/24/2021 Reason For Consultation: Midepigastric pain with maroon stools as well as a left lower quadrant pain and abnormal CT revealing colitis of the descending, sigmoid colon. History Of Present Illness: The patient is a 71-year-old white male with past medical history of lap aroscopic cholecystectomy, left arm fracture, and tonsillectomy. The patient presented to the [facility] with GI bleed, pain in the right and left lower quadrant, midepigastric area, and maroon stool. T he patient has been taking meloxicam and prednisone due to bilateral hand pain, weakness, numbness, a nd manipulations by chiropractor and has been on ibuprofen 600 mg twice a day as well. He complains of midepigastric pain as well as right and left lower quadrant pain. He has some diarrhea for 4 days , but this stopped 2 days ago. His last colonoscopy was 4 years ago at the [facility], which he states is ne gative. Prior to that, he had a colonoscopy four colon polyps removed. Past Medical History: Significant for laparoscopic cholecystectomy, left arm fracture at 9 years of age, and tonsillectomy. Medications: He takes no medicines at home he reports except this ibuprofen, prednisone, and meloxic am. Social History: He is with 2 daughters. No tobacco. Occasional alcohol, 2 beers every othe r week, he reports. 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 Mother of conge stive heart failure. Review of Systems: The patient has midepigastric, right and left lower quadrant pain, maroon stools. He denies any rony temesis, coffee-grounds emesis, fevers, chills, night sweats, heat or cold intolerance, muscle aches, joint aches. He does note no chest pain, shortness of breath, seizure, syncope, depression, anxiety . He also reports dysphagia to solids recently. Physical Examination: Vital Signs: The patient is 5 feet 10 inches, 227 pounds, BMI 32 Kg/m2. Temperature 98 degrees Fahr enheit, pulse 93, respirations 18, blood pressure 120/66, O2 saturation 98%. HEENT: Normocephalic, atraumatic. Anicteric. Pupils are equal, round, and reactive to light. Extr aocular movements intact. Oropharynx clear. Neck: Supple. No masses. Respirations: Clear to auscultation bilaterally. Cardiac: Regular rate and rhythm. Gastrointestinal: Positive bowel sounds. Soft, nondistended. Mild tenderness in the midepigastric, right and left lower quadrant areas. No guarding. No peritoneal or Lewis sign. Mildly obese. Extremities: No clubbing, cyanosis, or edema. 2+ pulses. Neuro: Alert and oriented x3. Grossly nonfocal, 5/5 motor. Sensation intact to light touch. Data: The patient has a white count of 6.3, hemoglobin 12.6 , hematocrit 37.5, MCV of 86, p latelet count 302, polys of 80%, lymphocytes 10%, monocytes 11%, eosinophils 1%. PT of 14.1, INR of 1.28, PTT of 35.1. He got a sodium 133, potassium 3.8, chloride 102, bicarb 24, BUN of 14, creatinin e of 0.8, glucose 95, calcium 9.4, magnesium 2.1, total bilirubin 0.9, AST of 23, ALT of 18, alkaline phosphatase 62, troponin I of 4.8 of high sensitivity, total protein 6.1, albumin . UA sh owed positive nitrite, 20 to 50 bacteria 2+ protein. Serology is negative COVID-[address] of the abdomen and pelvis reveals moderate thickening of the wall of sigmoid. Mild thickening of the wall of descending colon, probably mild colitis. Impression: 1.Midepigastric pain with maroon stools, gastrointestinal bleed . 2.Right and left lower quadrant pain with maroon stools and abnormal CT. Diarrhea for 4 days ____we will do stool studies if he has diarrhea again. Colonoscopy last performed 4 years ago was [facility] at the [facility] before that. 3.Colitis on the CT scan of abdomen and pelvis in the descending, sigmoid colon, greater in the sigm oid colon. We will check stool studies. 4.Occasional dysphagia if he has solids. We will proceed with EGD. 5.History of laparoscopic cholecystectomy, left arm fracture at 9 years old and tonsillectomy. Recommendation: 1.EGD and IV fluids. If diarrhea recurs, we will check stool studies. 2.Serial H and H and transfuse p.r.n. Consider colonoscopy if needed. LISA/LIZETH Voice ID: [id number] Report ID: [id number]
[2021-11-27] MEDS: PANTOPRAZOLE 40MG TABLET PO SCH ×2 (08:30→17:15)
[2021-11-27] MEDS: CIPROFLOXACIN 400mg IV 400 MG/200 ML BAG IV SCH ×2 (08:43→21:21)
[2021-11-27] MEDS: POTASSIUM 25 MEQ EFFERV TAB PO SCH (08:43)
[2021-11-27] MEDS ORDERED: POTASSIUM CL SA 10 MEQ TAB PO ONE (09:00)
[2021-11-27] MEDS: HYDROCORTISONE ACETATE 25MG SUPP PR SCH ×2 (09:30→21:21)
--- NOTE | 2021-11-27 17:35 | P.PN ---
Date of Service: 11/27/21 Subjective: continues with several stools feels maybe more blood in stool pain improved ROS: 10 point ROS as noted above, otherwise negative Physical exam GEN: Alert, oriented, NAD HEENT: Normal conjunctiva, sclera anicteric CV: Regular rate and rhythm, no edema Pulm: Nonlabored respirations on room air ABD: Soft, mild TTP in LLQ Neuro: Normal speech, normal affect Problem list Sigmoid colitis with GI bleed Epigastric tenderness 2/2 gastritis Schatzki's ring Low blood pressure and tachycardia secondary to dehydration Hemoglobin 14 -> 12, 2/2 blood loss, dilutional; stable advance diet, off IVF, protonix BID Schatzki's ring s/p dilatation. Patient swallowing without issue Continues with bloody bowel movements continue iV antibiotics monitor for improvement of bleeding discussed with GI, start anucort, possibly from hemorrhoids await less frequent stools VTE: SCDs Code: DNR Dispo: Home, likely tomorrow Time Spent Managing Pts Care (In Minutes): 35
[2021-11-27 18:55] LABS: Magnesium 2.2 mg/dL (1.8-2.4); Potassium 3.9 mmol/L (3.5-5.1)
[2021-11-28] MEDS: METRONIDAZOLE 500mg IVPB 500 MG/100 ML BAG IV SCH ×2 (01:21→08:12)
[2021-11-28 04:22] LABS: Hematocrit 38.6 % (39.6-49.0); RBC Red Blood Cell Count 4.51 M/uL (4.33-5.43)
[2021-11-28 04:35] LABS: BUN Blood Urea Nitrogen 11 mg/dL (7-18); Bicarbonate 28 mmol/L (21-32); Glucose Level 112 mg/dL (74-106); Magnesium 2.3 mg/dL (1.8-2.4); Potassium 3.8 mmol/L (3.5-5.1); Sodium Level 134 mmol/L (136-145)
[2021-11-28 04:44] VITALS: O2SAT 97
[2021-11-28] MEDS: PANTOPRAZOLE 40MG TABLET PO SCH (08:12)
[2021-11-28] MEDS: HYDROCORTISONE ACETATE 25MG SUPP PR SCH (08:12)
[2021-11-28] MEDS: CIPROFLOXACIN 400mg IV 400 MG/200 ML BAG IV SCH (08:13)
[2021-11-28] MEDS ORDERED: POTASSIUM CL SA 10 MEQ TAB PO ONE (09:00)
[2021-11-28] MEDS: POTASSIUM 25 MEQ EFFERV TAB PO SCH (09:00)
--- NOTE | 2021-11-28 10:52 | P.DS ---
Admission Date: 11/24/21 Discharge Date: 11/28/21 Disposition: ROUTINE DISCHARGE Discharge Condition: FAIR Reason for Admission: GI bleed, melena, hematochezia, COLETTE pain, dysphagia, RLQ/LLQ pain, abn CT Brief History of Present Illness: 71-year-old male, PMH: Shoulder/neck pain presented to ED due to 4-5 days of persistent diarrhea with maroonish discoloration. Patient was treated with meloxicam and prednisone for 1 week due to bilateral hand pain, weakness, numbness after manipulations by a chiropractor. Patient was previously taking ibuprofen 600 mg twice a day for approximately 4-5 days. Patient states upon completing the above regimen, he began to have diarrhea and noted maroonish discoloration. He reportsed initially having diarrhea episodes every 2 hours, associated with abdominal discomfort while/after having a bowel movement. Patient took Imodium with some slight improvement of frequency of diarrhea. Denies any prior history of GI bleed. Last colonoscopy 3-4 years ago unremarkable, only had a polypectomy. He also reported heartburn over the last several days not relieved with Tums. He has been unable to stay hydrated and keep up with the diarrhea. In the ED, he was noted to be tachycardic to 110, low blood pressure [id number] systolic, afebrile. CT abdomen/pelvis concerning for moderate colitis. Patient admitted for further management. Hospital Course: Problem list Sigmoid colitis with GI bleed Epigastric tenderness 2/2 gastritis Schatzki's ring Low blood pressure and tachycardia secondary to dehydration Patient admitted to the medical floor, treated with IV protonix drip, and IV fluid for dehydration. Hemoglobin 14 -> 12, 2/2 blood loss and dilutional effect of IV fluid. Hb was stable. Seen by GI-Dr. Suggs. EGD performed. Schatzki's ring seen s/p dilatation. He tolerated diet advancement. off IVF, Transitioned to oral protonix bid. Patient swallowing without issue He continued to have BRBPR. GI suspects this is due to hemorrhoids. Patient report history of hemorrhoids. He was treated briefly with antibiotics. BRBPR has subsided. Dr. Suggs recommended Anucort. Patient ffeels the anucort has helped with the bloody bowel movement. Patient request to go home and then follow up with GI for further evaluation. He is discharged to follow with [facility]. Vital Signs/Physical Exam: Temp Pulse Resp BP Pulse Ox 98.2 F 88 18 121/69 94 11/28/21 08:00 11/28/21 08:00 11/28/21 08:00 11/28/21 08:00 11/28/21 08:00 General: Alert, In no apparent distress, Oriented x3 HEENT: Mucous membr. moist/pink Neck: JVD not distended Respiratory: Clear to auscultation bilaterally, Normal air movement Cardiovascular: Regular rate/rhythm, Normal S1 S2 Gastrointestinal: Normal bowel sounds, Soft and benign, Non-distended, No tenderness Musculoskeletal: No tenderness Integumentary: No rashes Neurological: Normal strength at 5/5 x4 extr Laboratory Data at Discharge: WBC 10.2 K/uL (4.3-10.9) D 11/28/21 03:41 Hgb 12.9 g/dL (13.6-17.9) L 11/28/21 03:41 Hct 38.6 % (39.6-49.0) L 11/28/21 03:41 Plt Count 319 K/uL (152-406) 11/28/21 03:41 PT 14.1 SECONDS (9.5-12.5) H 11/23/21 12:45 INR 1.28 11/23/21 12:45 APTT 35.1 SECONDS (24.3-36.9) 11/23/21 12:45 Sodium 134 mmol/L (136-145) L 11/28/21 03:41 Potassium 3.8 mmol/L (3.5-5.1) 11/28/21 03:41 BUN 11 mg/dL (7-18) 11/28/21 03:41 Creatinine 0.71 mg/dL (0.55-1.3) 11/28/21 03:41 Glucose 112 mg/dL (74-106) H 11/28/21 03:41 Magnesium 2.3 mg/dL (1.8-2.4) 11/28/21 03:41 Total Bilirubin 0.7 mg/dL (0.2-1.0) 11/25/21 05:00 AST 21 U/L (15-37) 11/25/21 05:00 ALT 14 U/L (12-78) 11/25/21 05:00 Alkaline Phosphatase 56 U/L (45-117) 11/25/21 05:00 Home Medications: Hydrocort Acetate Suppos [Anucort-Hc Suppository*] 25 mg ME BID #60 supp 11/28/21 Pantoprazole [Protonix Tab*] 40 mg PO BIDAC #60 tab 11/28/21 New Medications: Hydrocort Acetate Suppos [Anucort-Hc Suppository*] 25 mg ME BID #60 supp Pantoprazole [Protonix Tab*] 40 mg PO BIDAC #60 tab Diet: AHA Activity: Ad sydnee Followup: FUNMI CHOUDHARY [Primary Care Provider] - Mateusz Suggs MD [ASSOCIATE-ACTIVE - CAN ADMIT] - (gastrointestinal doctor ) ABIEL EBAL [OUTSIDE PHYSICIAN] - 1 Week Time spent managing pt's care (in minutes): 38
[2021-11-28 12:16] VITALS: BP 110/59; TEMP 97
== END 2021-11-28 12:36 | disposition home or self-care (01) | DRG 391 ==
LOC: ER 11:52 → ERHOLD 16:49 → 2ND 19:34 → OBSVTOIN 11-24 12:32
PROVIDERS: ADMIT Hospitalist; ATTEND Hospitalist
PROC: 0D738ZZ Dilation of Lower Esophagus, Via Natural or Artificial Opening Endoscopic (ICD-10-PCS; 2021-11-24)
PROC: 0DB68ZX Excision of Stomach, Via Natural or Artificial Opening Endoscopic, Diagnostic (ICD-10-PCS; principal; 2021-11-24 13:30)
DX: K52.9 Noninfective gastroenteritis and colitis, unspecified (principal); K29.41 Chronic atrophic gastritis with bleeding; K29.81 Duodenitis with bleeding; K22.2 Esophageal obstruction; E86.0 Dehydration; R03.1 Nonspecific low blood-pressure reading; R00.0 Tachycardia, unspecified; K44.9 Diaphragmatic hernia without obstruction or gangrene; Z66 Do not resuscitate; D64.9 Anemia, unspecified; K64.9 Unspecified hemorrhoids; Z20.822 Contact with and (suspected) exposure to COVID-19
CPT/HCPCS: 36415; 70450; 71045; 74177; 80048; 80053; 80076; 81003; 81015; 82274; 83735; 84132; 84484; 85025; 85027; 85610; 85730; 86850; 86900; 86901; 87045; 87046; 87086; 87088; 87177; 87209; 87324; 87425; 87449; 88305; 88312; 93005; 94760; 99285; C9113; G0378; J0171; J0744; J2405; J2704; J3480; J7030; J7050; J7120; Q9967; U0003